=== PATIENT | female | born 1990 | race African-American/Black ===

== ENCOUNTER 2024-04-02 08:04 | Emergency (ER) | payer OTHER ==
[~2024-04-02] VITALS: Ht 154.9 cm; Wt 73.6 kg
[2024-04-02 08:19] VITALS: BP 135/82; TEMP 98
[2024-04-02] MEDS ORDERED: DOXYCYCLINE 10100 MG PO (11:14)
[2024-04-02 11:33] VITALS: PULSE 75
== END 2024-04-02 11:33 | disposition home or self-care (01) ==
LOC: COL.ER 08:04
DX: S01.05XA Open bite of scalp, initial encounter (principal); Z88.0 Allergy status to penicillin; Z23 Encounter for immunization; W54.0XXA Bitten by dog, initial encounter; Y93.01 Activity, walking, marching and hiking; Y92.89 Other specified places as the place of occurrence of the external cause